=== PATIENT | female | born 1965 | race Caucasian/White ===

== ENCOUNTER 2016-04-04 08:29 | Outpatient (CLI) | payer OTHER ==
[2016-04-04 09:16] LABS: Anion Gap 18 mmol/L (10-20); BUN (Urea Nitrogen) 25 mg/dL (7.0-18.7); Calc. Creatinine Clearance 0 mL/min (70-130); Calcium 9.8 mg/dL (7.8-10.44); Carbon Dioxide 24 mmol/L (22-29); Chloride 103 mmol/L (98-107); Estimated GFR-MDRD 44; Glucose 93 mg/dL (70-105); Potassium 4.4 mmol/L (3.5-5.1); Sodium 141 mmol/L (136-145)
[2016-04-04 17:32] LABS: Creatinine, Urine 71.17 mg/dL (47-110); Protein, Urine Random Quant Less than 10 mg/dL
[2016-04-06 07:28] LABS: Antinuclear AB Negative (Negative)
== END 2016-04-04 08:30 | disposition home or self-care (01) ==
LOC: MADLAB 08:29
PROVIDERS: ATTEND Internal Medicine Nephrology
DX: E11.22 Type 2 diabetes mellitus with diabetic chronic kidney disease (principal); I12.9 Hypertensive chronic kidney disease with stage 1 through stage 4 chronic kidney disease, or unspecified chronic kidney disease; N18.3 Chronic kidney disease, stage 3 (moderate)
CPT/HCPCS: 36415; 80048; 82570; 84156; 86038